=== PATIENT | male | born 1945 | race Caucasian/White ===

== ENCOUNTER → 2020-03-30 | Outpatient (CLI) | payer MEDICARE, OTHER | END | disposition home or self-care (01) | LOC: CFH 16:17 | PROVIDERS: ATTEND Internal Medicine | DX: I35.8 Other nonrheumatic aortic valve disorders (principal); E78.5 Hyperlipidemia, unspecified; Z96.642 Presence of left artificial hip joint | CPT/HCPCS: 93306 ==

== ENCOUNTER 2020-04-13 09:05 | Outpatient (CLI) | payer MEDICARE, OTHER ==
[2020-04-13 09:32] LABS: ANION GAP 6 mmol/L (5-15); CALCIUM 8.2 mg/dL (8.5-10.1); CHLORIDE 104 mmol/L (98-107)
[2020-04-13] MEDS ORDERED: OMNIPAQUE 350 MG/ML, 100ML BOTTLE ONE (11:00)
== END 2020-04-13 23:59 | disposition home or self-care (01) ==
LOC: CVU 09:05 → RAD 23:59
PROVIDERS: ATTEND Internal Medicine Cardiovascular Disease
DX: Z01.810 Encounter for preprocedural cardiovascular examination (principal); I65.23 Occlusion and stenosis of bilateral carotid arteries; K76.0 Fatty (change of) liver, not elsewhere classified; K57.30 Diverticulosis of large intestine without perforation or abscess without bleeding; R06.02 Shortness of breath; I35.0 Nonrheumatic aortic (valve) stenosis; I70.0 Atherosclerosis of aorta; M51.36 Other intervertebral disc degeneration, lumbar region
CPT/HCPCS: 36415; 71275; 74174; 80048; 93880; Q9967

== ENCOUNTER 2020-04-26 11:10 | Day surgery (SDC) | payer MEDICARE, OTHER ==
[~2020-04-26] VITALS: Ht 170.2 cm; Wt 67.0 kg
[2020-04-26] MEDS ORDERED: FOLI1TAB32 PO (11:37)
[2020-04-26] MEDS ORDERED: ATOR40TA PO (11:37)
[2020-04-26] MEDS ORDERED: ASPI81TA45 PO (11:37)
[2020-04-26] MEDS ORDERED: OTC potassium PO (11:37)
[2020-04-26] MEDS ORDERED: GABA300C PO (11:37)
[2020-04-26] MEDS ORDERED: MAGN300C PO (11:37)
[2020-04-26] MEDS ORDERED: FEXO60TA24 PO (11:37)
[2020-04-26] MEDS ORDERED: VITA1TAB19 PO (11:37)
[2020-04-26] MEDS ORDERED: ACID1TAB PO (11:37)
[2020-04-26] MEDS ORDERED: SODIUM CHLORIDE 0.9% 1,000 ML IV SCH ×2 (12:00→14:00)
[2020-04-26 12:03] LABS: BASOPHILS % (AUTO) 1 % (0-1); EOSINOPHILS % (AUTO) 2 % (1-7); LYMPHOCYTES % (AUTO) 21 % (22-44); MEAN CORPUSCULAR HEMOGLOBIN 35.5 pg (27.5-34.5); MEAN CORPUSCULAR HGB CONC 34.2 g/dL (33.2-36.2); MEAN PLATELET VOLUME 6.7 fL (7.4-10.4); MONOCYTES % (AUTO) 8 % (2-9); NEUTROPHILS % (AUTO) 68 % (42-75); PLATELET COUNT 278 x10^3/uL (130-400); RED BLOOD COUNT 4.05 x10^6/uL (4.38-5.82); RED CELL DISTRIBUTION WIDTH 13.4 % (9.4-14.8)
[2020-04-26 12:04] LABS: MD NO
[2020-04-26 12:11] LABS: ANION GAP 5 mmol/L (5-15); CALCIUM 8.6 mg/dL (8.5-10.1); CHLORIDE 108 mmol/L (98-107); CREATININE 0.67 mg/dL (0.7-1.3)
[2020-04-26] MEDS ORDERED: FENTANYL PF 100 MCG/2ML ONE (13:03)
[2020-04-26] MEDS ORDERED: MIDAZOLAM 1 MG/ML, 2ML ONE (13:03)
[2020-04-26] MEDS ORDERED: VERAPAMIL 2.5 MG/ML, 2ML ONE (13:03)
[2020-04-26] MEDS ORDERED: LIDOCAINE-MPF 1%, 5ML ONE (13:03)
[2020-04-26] MEDS ORDERED: HEPARIN 1,000 UNITS/ML, 10ML ONE (13:04)
[2020-05-02] MEDS ORDERED: ACET325T26 PO (08:24)
== END 2020-04-26 15:18 | disposition home or self-care (01) ==
LOC: CACL 11:10
PROVIDERS: ATTEND Internal Medicine Cardiovascular Disease
DX: Z01.810 Encounter for preprocedural cardiovascular examination (principal); I35.0 Nonrheumatic aortic (valve) stenosis; I25.10 Atherosclerotic heart disease of native coronary artery without angina pectoris; I25.84 Coronary atherosclerosis due to calcified coronary lesion; I10 Essential (primary) hypertension; E78.2 Mixed hyperlipidemia; Z20.822 Contact with and (suspected) exposure to COVID-19; Z79.82 Long term (current) use of aspirin; Z79.899 Other long term (current) drug therapy; Z86.79 Personal history of other diseases of the circulatory system; Z98.890 Other specified postprocedural states
CPT/HCPCS: 36415; 80048; 85025; 93454; 99156; C1769; C1894; J1644; J2250; J3010; Q9967; U0003

== ENCOUNTER 2020-06-01 13:47 | Outpatient (CLI) | payer MEDICARE, OTHER ==
[~2020-06-01 13:47] MED LIST: ACET325T26 PO; ACID1TAB PO; ASPI81TA45 PO; ATOR40TA PO; FEXO60TA24 PO; FOLI1TAB32 PO; GABA300C PO; MAGN300C PO; OTC potassium PO; VITA1TAB19 PO
== END 2020-06-01 23:59 | disposition home or self-care (01) ==
LOC: CFH 13:47
PROVIDERS: ATTEND Internal Medicine Cardiovascular Disease
DX: Z01.810 Encounter for preprocedural cardiovascular examination (principal); I36.1 Nonrheumatic tricuspid (valve) insufficiency; R06.02 Shortness of breath; I65.29 Occlusion and stenosis of unspecified carotid artery; I11.9 Hypertensive heart disease without heart failure
CPT/HCPCS: 93306